=== PATIENT | male | born 1970 | race Caucasian/White ===

== ENCOUNTER 2024-07-19 13:20 | Oncology outpatient (recurring) (ONCR) | payer MEDICARE, SELFPAY ==
[2024-06-21 10:45] LABS: Basophils # 0.1 10^3/uL (0.0-0.1); Basophils % 0.6 %; Eosinophils # 0.1 10^3/uL (0.0-0.8); Eosinophils % 0.8 %; Hematocrit 51.4 % (37-53); Lymphocytes # 1.4 10^3/uL (0.8-4.8); Lymphocytes % 15.1 %; Mean Corpuscular HGB Conc 33.3 g/dL (30-55); Mean Corpuscular Hemoglobin 31.1 pg (27-33); Mean Corpuscular Volume 93.6 fl (82-101); Mean Platelet Volume 10.4 fL (7.4-10.4); Monocytes # 0.8 10^3/uL (0.2-0.9); Monocytes % 8.4 %; Neutrophils # 6.66 10^3/uL (1.8-7.7); Neutrophils % 74.1 %; Nucleated Red Blood Cells % 0 %; Platelet Count 168 10^3/cmm (157-399); Red Blood Count 5.49 10^6/uL (3.85-5.65); Red Cell Distribution Width 13.1 % (12.1-15.1); White Blood Count 8.98 10^3/uL (3.29-11.43)
[2024-06-21 10:51] LABS: Reticulocyte % 2.3 % (0.5-2.0)
[2024-06-21 11:09] LABS: Alanine Aminotransferase 56 U/L (0-41); Albumin Level 4.5 g/dL (3.5-5.2); Alkaline Phosphatase 152 U/L (40-130); Anion Gap 16.1 (5-19); Aspartate Amino Transferase 29 U/L (0-40); Blood Urea Nitrogen 13 mg/dL (6-20); C Reactive Protein 7.8 mg/L (0.0-4.9); Calcium 9.5 mg/dL (8.5-10.5); Carbon Dioxide 25 mmol/L (22-29); Chloride 100 mmol/L (98-107); Creatinine Clr Calc Pharmacy 147.7856; Ferritin 121 ng/mL (30-400); Globulin 2.5 g/dL (1.3-4.6); Glomerular Filtration Rate 139.4 mL/min (90-130); Glucose 94 mg/dL (65-115); Iron 91 ug/dL (59-158); Lactate Dehydrogenase 156 U/L (135-225); Osmolality Calculated 284 mOsm/kg (285-295); Percent Saturation 24.6 % (20-50); Potassium 4.1 mmol/L (3.5-5.1); Sodium 137 mmol/L (136-145); Total Bilirubin 0.8 mg/dL (0.15-1.2); Total Iron Binding Capacity 369 mcg/dl; Unsaturated Iron Binding 278 ug/dL (112-347)
[2024-06-21 11:38] LABS: Carcinoembryonic Antigen 169.5 ng/mL (0.0-4.7)
[2024-06-23 10:10] LABS: Erythropoietin 12.4 mIU/mL (2.6-18.5)
== END 2024-07-19 23:59 | disposition home or self-care (01) ==
PROVIDERS: Visit Provider Internal Medicine
DX: C78.7 Secondary malignant neoplasm of liver and intrahepatic bile duct (principal); C78.01 Secondary malignant neoplasm of right lung; C78.02 Secondary malignant neoplasm of left lung; Z85.038 Personal history of other malignant neoplasm of large intestine; F17.200 Nicotine dependence, unspecified, uncomplicated; E66.9 Obesity, unspecified; Z68.31 Body mass index [BMI] 31.0-31.9, adult; I73.9 Peripheral vascular disease, unspecified; G62.0 Drug-induced polyneuropathy; T45.1X5A Adverse effect of antineoplastic and immunosuppressive drugs, initial encounter; Z71.6 Tobacco abuse counseling; R97.0 Elevated carcinoembryonic antigen [CEA]
CPT/HCPCS: 36415; 80053; 82378; 82668; 82728; 83010; 83540; 83550; 83615; 85025; 85045; 86140; 99204; 99213

== ENCOUNTER 2024-09-05 12:45 | Oncology outpatient (recurring) (ONCR) | payer MEDICARE, MEDICAID, SELFPAY | END 2024-09-18 23:59 | disposition home or self-care (01) | PROVIDERS: PCP Family Medicine; Visit Provider Internal Medicine | DX: Z53.9 Procedure and treatment not carried out, unspecified reason (principal) ==